=== PATIENT | female | born 1990 | race Caucasian/White ===

== ENCOUNTER 2022-08-09 10:25 | Outpatient (CLI) | payer BC, SELFPAY | END 2022-08-09 10:26 | disposition home or self-care (01) | PROVIDERS: PCP Obstetrics & Gynecology; Visit Provider Physician Assistant | DX: R35.0 Frequency of micturition (principal); N39.0 Urinary tract infection, site not specified | CPT/HCPCS: 87086 ==

== ENCOUNTER 2022-12-30 10:23 | Outpatient (CLI) | payer BC, SELFPAY ==
--- NOTE | 2022-12-30 10:15 | CRLHL7_ITS ---
For Patients: As a result of the Century Cures Act, medical imaging exams and procedure reports are released immediately into your electronic medical record. You may view this report before your referring provider. If you have questions, please contact your health care provider. INDICATION: Spotting TECHNIQUE: Ultrasound pelvis transabdominal and transvaginal for better assessment or to better visualize the endometrium. Real time sonographic images with Spectral and color Doppler imaging of the ovaries were obtained. COMPARISON: 12/16/2016 FINDINGS: Uterus: 8.4 centimeter x 4.0 centimeter x 0.6 centimeters. Normal echotexture of the myometrium. No masses. Endometrium: Transvaginal imaging was performed to better evaluate the endometrium. 9 millimeters in thickness. No sign of endometrial mass or fluid. Right ovary: 3.3 centimeter x 2.2 centimeter x 2.2 centimeter no ovarian or adnexal masses. Left ovary: 3.7 centimeter x 1.3 centimeter x 1.3 centimeter. No ovarian or adnexal masses. Cul-de-sac: No significant free fluid. IMPRESSION: Unremarkable pelvic ultrasound. Dictated by Patrick Unger MD @ 12/30/2022 11:37:29 AM (Electronically Signed)
== END 2022-12-30 10:24 | disposition home or self-care (01) ==
LOC: US 10:24
PROVIDERS: PCP Obstetrics & Gynecology; Visit Provider Obstetrics & Gynecology
DX: Z01.419 Encounter for gynecological examination (general) (routine) without abnormal findings (principal); N92.0 Excessive and frequent menstruation with regular cycle; N89.8 Other specified noninflammatory disorders of vagina; E66.9 Obesity, unspecified; Z13.6 Encounter for screening for cardiovascular disorders
CPT/HCPCS: 76830; 76856; 80061; 82652; 82947; 84439; 84443; 84481